=== PATIENT | male | born 1985 | race Two or more races ===

== ENCOUNTER 2016-07-05 13:54 | Emergency (ER) | payer MEDICAID ==
[~2016-07-05] VITALS: Ht 165.1 cm; Wt 77.1 kg
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
--- NOTE | 2016-07-05 14:30 | NUR ---
PEDRO LUIS RODRIGUEZ AT FOR WOUND CARE.
[2016-07-05] MEDS ORDERED: SILVER SULFADIAZINE CREAM 25 GM TUBE ONE (14:31)
[2016-07-05] MEDS ORDERED: HYDROCODONE/APAP 10/325MG 1 EA TABLET ONE (14:38)
--- NOTE | 2016-07-05 14:45 | NUR ---
PT MEDICATED ORDERED.
[2016-07-05] MEDS ORDERED: HYDROCODONE/APAP 10/325MG 1 EA TABLET PO ONE (15:00)
[2016-07-05] MEDS ORDERED: SILVER SULFADIAZINE CREAM 25 GM TUBE TP ONE (15:00)
[2016-07-05] MEDS ORDERED: TDAP [DIPH/PERTUSSIS/TET] 0.5 ML VIAL IM ONE ×2 (15:07→15:30)
[2016-07-05 15:16] VITALS: BP 132/71
--- NOTE | 2016-07-05 15:16 | NUR ---
Patient discharged to home in stable condition. Written and verbal after care instructions given. Patient verbalizes understanding of instruction. Pt ambulatory with a steady gait.
== END 2016-07-05 15:17 | disposition home or self-care (01) ==
LOC: ER 13:56
DX: T22.00XA Burn of unspecified degree of shoulder and upper limb, except wrist and hand, unspecified site, initial encounter (principal); T21.01XA Burn of unspecified degree of chest wall, initial encounter; F10.20 Alcohol dependence, uncomplicated; Y92.89 Other specified places as the place of occurrence of the external cause; Y93.89 Activity, other specified; Y99.8 Other external cause status
CPT/HCPCS: 90471; 90715; 99283; A4606; A6403; Z7610